=== PATIENT | male | born 1935 | race Caucasian/White ===

== ENCOUNTER 2017-08-20 09:13 | Observation (INO) ==
--- NOTE | 2017-08-20 09:32 | Emergency Department Note ---
Disposition Clinical Impression: Hyperglycemia Altered mental status Qualifiers: Altered mental status type: unspecified Qualified Code(s): R41.82 - Altered mental status, unspecified Disposition: Admitted As Inpatient Condition: Fair Referrals: Marcello Gomez MD [Primary Care Provider] - Forms: ED Satisfaction Letter Time of Disposition: 10:53 General Adult HPI - General Chief complaint: ED Recheck/Abnormal Lab/Rx Stated complaint: Elevated Blood Glucose Time Seen by Provider: 08/20/17 09:25 Source: patient, family Mode of arrival: ambulatory Limitations: no limitations Nursing Notes Reviewed: Yes Vital Signs Reviewed: Yes - History of Present Illness HPI Narrative: 82-year-old who comes in complaining of elevated glucose family states he's not able to get his glucose under 350-400. Turns out according to daughter that is been some confusion and in taking his medications he has not been taking his metformin. They went to see the family doctor and he started back on his metformin on Tuesday but apparently has not been taking his insulin. So no noticed over the last couple weeks increasing confusion and memory problems. Pt Subjective Complaint: Confusion diabetes out of control Onset (ago): day(s) Pain Scale: 0 - Related Data Home Medications Medication Instructions Recorded Confirmed Aspirin [Adult Low Dose Aspirin EC] 81 mg PO 01/06/16 Insulin Glargine,Hum.rec.anlog 100 unit SQ 01/06/16 [Lantus Solostar] Meclizine [Antivert] 01/06/16 Metoprolol [Lopressor] 100 mg PO 01/06/16 Multivitamin [Multivitamins] 01/06/16 Nitroquick 01/06/16 [employer]/Dha/Epa/Fish Oil [Fish Oil] 500 mg PO 01/06/16 Pravastatin Sodium [Pravachol] 80 mg PO 01/06/16 Promethazine [Phenergan] 25 mg PO 01/06/16 Quinapril HCl [Accupril] 40 mg PO 01/06/16 Ranitidine HCl [Zantac] 150 mg PO 01/06/16 Sitagliptin Phosphate [Januvia] 50 mg PO 01/06/16 amLODIPine [Norvasc] 5 mg PO 01/06/16 glipiZIDE [Glipizide] 10 mg PO 01/06/16 hydroCHLOROthiazide 25 mg PO 01/06/16 [Hydrochlorothiazide] metFORMIN [Glucophage] 01/06/16 Allergies Allergy/AdvReac Type Severity Reaction Status Date / Time glimepiride [From Amaryl] Allergy Rash Verified 08/20/17 09:20 ivp dye Allergy Rash Uncoded 08/20/17 09:20 All systems ED: reviewed and negative except as stated. Constitutional: Denies: fever, chills, weakness, weight change Eyes: Denies: eye pain, eye discharge, vision change ENT ED: Denies: ear pain, throat pain, dental pain, hearing loss, epistaxis, congestion, dysphagia Cardiovascular: Denies: chest pain, palpitations, dyspnea on exertion, edema, syncope Respiratory: Denies: cough, dyspnea, wheezes, hemoptysis, stridor Gastrointestinal: Denies: abdominal pain, nausea, vomiting, diarrhea, constipation, hematemesis, melena, hematochezia Genitourinary: Denies: urgency, dysuria, frequency, hematuria Musculoskeletal: Denies: back pain, neck pain, arthralgia, myalgia Integumentary: Denies: rash, abrasion, lesions Neurological: Reports: confusion. Denies: headache, weakness, numbness, paresthesias, abnormal gait, vertigo Psychiatric: Denies: anxiety, depression, suicidal thoughts, homicidal thoughts , auditory hallucinations, visual hallucinations Endocrine: Denies: fatigue Hematological/Lymphatic: Denies: easy bleeding, easy bruising Allergic/Immunologic: Denies: facial swelling, urticaria Past Medical History - Past Medical History Medical history: Reports: diabetes, hypertension, myocardial infarction Psychiatric history: Reports: no psych history - Social History Smoking Status: Never smoker Smokeless Tobacco Status: No Alcohol use: Reports: none Drug use: Reports: none Physical Exam - General Limitations: no limitations General appearance: alert, in no apparent distress - Head Head exam: atraumatic, normocephalic, normal inspection - Eye Eye exam: Present: normal appearance, PERRL, EOMI - ENT ENT exam: normal exam, normal oropharynx, mucous membranes moist - Neck Neck exam: Present: normal inspection, full ROM, trachea midline - Chest Chest inspection: Present: normal inspection, symmetric chest wall rise - Respiratory Respiratory exam: Present: normal lung sounds bilaterally - Cardiovascular Cardiovascular exam: Present: regular rate, normal rhythm, normal heart sounds - Abdominal Exam Abdominal exam: Present: soft, Non-Tender. Absent: tenderness, distention, guarding, rebound, rigidity - Extremities Exam Extremities exam: Present: normal inspection, full ROM. Absent: tenderness, pedal edema - Expanded Lower Extremity Exam Neurovascular/Tendon exam: Absent: motor deficit, sensory deficit, tendon deficit Gait: observed and normal - Back Exam Back exam: Present: normal inspection, full ROM. Absent: tenderness - Neurological Exam Neurological exam: Present: alert, oriented X3. Absent: motor sensory deficit - Psychiatric Psychiatric exam: Present: normal affect, normal mood - Skin Skin exam: Present: warm, dry, intact, normal color Course - Reevaluation(s) Reevaluation #1: 82-year-old who comes in complaining of altered mental status or confusion according to family and also elevated glucose. Ketones are positive in his blood. But the patient my impression is he has some dementia. Time: 11:35 - Consultations Consultation #1: Discussed with Dr. Carson, admit Time: 11:36 Vital Signs Temperature 97.4 F L 08/20/17 09:16 Pulse Rate 64 08/20/17 09:16 Respiratory Rate 16 08/20/17 09:16 Blood Pressure 211/73 08/20/17 09:16 O2 Sat by Pulse Oximetry 96 08/20/17 09:16 Temperature 97.4 F L 08/20/17 09:16 Pulse Rate 62 08/20/17 10:33 Respiratory Rate 16 08/20/17 10:33 Blood Pressure 211/73 08/20/17 09:16 O2 Sat by Pulse Oximetry 96 08/20/17 10:33 Oxygen Delivery Oxygen Delivery Room Air Medical Decision Making - Lab Data Lab results reviewed: Yes I reviewed the patient's lab results. Result diagrams: 08/20/17 10:42 08/20/17 09:54 Lab Results 08/20/17 08/20/17 08/20/17 Range/Units 09:43 09:45 09:54 WBC (4.3-11.1) K/mcL RBC (4.19-5.50) M/mcL Hgb (12.9-16.9) g/dL Hct (37.5-50.1) % MCV (83.0-100.0) fL MCH (28.0-33.3) pg MCHC (31.6-35.5) g/dL RDW (11.5-14.5) % Plt Count (140-400) K/mcL MPV (9.4-12.4) fL Immature Gran % (0-4) % Seg Neutrophils % % Lymphocytes % % Monocytes % % Eosinophils % % Basophils % % Neutrophils # (1.6-8.9) K/mcL Lymphocytes # (0.6-4.6) K/mcL Monocytes # (0.0-1.3) K/mcL Eosinophils # (0.0-0.6) K/mcL Basophils # (0.0-0.2) K/mcL Immature Plt Fraction (1.1-6.1) % PT 11.1 (9.4-12.1) Seconds INR 1.0 APTT 27.1 (26.0-36.0) Seconds Sodium (136-145) mEq/L Potassium (3.5-4.5) mEq/L Chloride (98-109) mEq/L Carbon Dioxide (19-29) mEq/L BUN (8-26) mg/dL Creatinine (0.72-1.25) mg/dL Est GFR ( Amer) (> 60) Est GFR (Non-Af Amer) (> 60) BUN/Creatinine Ratio (6-26) Glucose (70-99) mg/dL POC Glucose 308 H 301 H (58-89) Calculated Osmolality (280-300) Calcium (8.6-10.8) mg/dL Total Bilirubin (0.2-1.2) mg/dL Direct Bilirubin (0.0-0.5) mg/dL Indirect Bilirubin (0.0-1.2) mg/dL AST (5-34) Units/L ALT (0-55) Units/L Alkaline Phosphatase (38-126) Units/L Troponin I (0-0.03) ng/mL Serum Total Protein (6.0-8.3) g/dL Albumin (3.5-5.0) g/dL Globulin (2.4-3.5) g/dL Albumin/Globulin Ratio (1.1-2.2) Beta-Hydroxybutyric Acd (0.02-0.27) mmol/L Urine Color (Yellow) Urine Clarity (Clear) Urine pH (5.0-8.0) pH Units Ur Specific Silas (1.010-1.025) Urine Protein (Neg-Trace) mg/dL Urine Glucose (UA) (Normal) mg/dL Urine Ketones (Negative) mg/dL Urine Blood (Negative) Urine Nitrite (Negative) Urine Bilirubin (Negative) Urine Urobilinogen (Normal) mg/dL Ur Leukocyte Esterase (Negative) Urine Microscopic RBC (0-3) per hpf Urine Microscopic WBC (0-3) per hpf Ur Squamous Epith Cells (None-Few) per lpf Urine Bacteria (None-Few) per hpf Hyaline Casts (None-Few) per lpf Ur Culture Indicated? (NO) Urine Opiates Screen (Eazrte=012) ng/mL Ur Barbiturates Screen (Eadtpn=594) ng/mL Ur Phencyclidine Scrn (Cutoff=25) ng/mL Ur Amphetamines Screen (Mfoaqs=1079) ng/mL U Benzodiazepines Scrn (Jaqylo=324) ng/mL Urine Cocaine Screen (Cutoff= 300) ng/mL U Marijuana (THC) Screen (Cutoff = 50) ng/mL Ethyl Alcohol (0-10) mg/dL Specimen Rejected 08/20/17 08/20/17 08/20/17 Range/Units 09:54 09:54 09:54 WBC (4.3-11.1) K/mcL RBC (4.19-5.50) M/mcL Hgb (12.9-16.9) g/dL Hct (37.5-50.1) % MCV (83.0-100.0) fL MCH (28.0-33.3) pg MCHC (31.6-35.5) g/dL RDW (11.5-14.5) % Plt Count (140-400) K/mcL MPV (9.4-12.4) fL Immature Gran % (0-4) % Seg Neutrophils % % Lymphocytes % % Monocytes % % Eosinophils % % Basophils % % Neutrophils # (1.6-8.9) K/mcL Lymphocytes # (0.6-4.6) K/mcL Monocytes # (0.0-1.3) K/mcL Eosinophils # (0.0-0.6) K/mcL Basophils # (0.0-0.2) K/mcL Immature Plt Fraction (1.1-6.1) % PT (9.4-12.1) Seconds INR APTT (26.0-36.0) Seconds Sodium 137 (136-145) mEq/L Potassium 4.4 (3.5-4.5) mEq/L Chloride 100 (98-109) mEq/L Carbon Dioxide 30 H (19-29) mEq/L BUN 24 (8-26) mg/dL Creatinine 1.06 (0.72-1.25) mg/dL Est GFR ( Amer) > 60 (> 60) Est GFR (Non-Af Amer) > 60 (> 60) BUN/Creatinine Ratio 23 (6-26) Glucose 339 H (70-99) mg/dL POC Glucose (58-89) Calculated Osmolality 301 H (280-300) Calcium 9.4 (8.6-10.8) mg/dL Total Bilirubin 0.9 (0.2-1.2) mg/dL Direct Bilirubin 0.3 (0.0-0.5) mg/dL Indirect Bilirubin 0.6 (0.0-1.2) mg/dL AST 14 (5-34) Units/L ALT 11 (0-55) Units/L Alkaline Phosphatase 89 (38-126) Units/L Troponin I 0.01 (0-0.03) ng/mL Serum Total Protein 6.8 (6.0-8.3) g/dL Albumin 3.4 L (3.5-5.0) g/dL Globulin 3.4 (2.4-3.5) g/dL Albumin/Globulin Ratio 1.0 L (1.1-2.2) Beta-Hydroxybutyric Acd 0.92 H (0.02-0.27) mmol/L Urine Color (Yellow) Urine Clarity (Clear) Urine pH (5.0-8.0) pH Units Ur Specific Silas (1.010-1.025) Urine Protein (Neg-Trace) mg/dL Urine Glucose (UA) (Normal) mg/dL Urine Ketones (Negative) mg/dL Urine Blood (Negative) Urine Nitrite (Negative) Urine Bilirubin (Negative) Urine Urobilinogen (Normal) mg/dL Ur Leukocyte Esterase (Negative) Urine Microscopic RBC (0-3) per hpf Urine Microscopic WBC (0-3) per hpf Ur Squamous Epith Cells (None-Few) per lpf Urine Bacteria (None-Few) per hpf Hyaline Casts (None-Few) per lpf Ur Culture Indicated? (NO) Urine Opiates Screen (Awguju=466) ng/mL Ur Barbiturates Screen (Vsrrht=992) ng/mL Ur Phencyclidine Scrn (Cutoff=25) ng/mL Ur Amphetamines Screen (Nzssyr=5743) ng/mL U Benzodiazepines Scrn (Lgxexy=367) ng/mL Urine Cocaine Screen (Cutoff= 300) ng/mL U Marijuana (THC) Screen (Cutoff = 50) ng/mL Ethyl Alcohol < 10 (0-10) mg/dL Specimen Rejected 08/20/17 08/20/17 08/20/17 Range/Units 09:54 10:02 10:04 WBC (4.3-11.1) K/mcL RBC (4.19-5.50) M/mcL Hgb (12.9-16.9) g/dL Hct (37.5-50.1) % MCV (83.0-100.0) fL MCH (28.0-33.3) pg MCHC (31.6-35.5) g/dL RDW (11.5-14.5) % Plt Count (140-400) K/mcL MPV (9.4-12.4) fL Immature Gran % (0-4) % Seg Neutrophils % % Lymphocytes % % Monocytes % % Eosinophils % % Basophils % % Neutrophils # (1.6-8.9) K/mcL Lymphocytes # (0.6-4.6) K/mcL Monocytes # (0.0-1.3) K/mcL Eosinophils # (0.0-0.6) K/mcL Basophils # (0.0-0.2) K/mcL Immature Plt Fraction (1.1-6.1) % PT (9.4-12.1) Seconds INR APTT (26.0-36.0) Seconds Sodium (136-145) mEq/L Potassium (3.5-4.5) mEq/L Chloride (98-109) mEq/L Carbon Dioxide (19-29) mEq/L BUN (8-26) mg/dL Creatinine (0.72-1.25) mg/dL Est GFR ( Amer) (> 60) Est GFR (Non-Af Amer) (> 60) BUN/Creatinine Ratio (6-26) Glucose (70-99) mg/dL POC Glucose (58-89) Calculated Osmolality (280-300) Calcium (8.6-10.8) mg/dL Total Bilirubin (0.2-1.2) mg/dL Direct Bilirubin (0.0-0.5) mg/dL Indirect Bilirubin (0.0-1.2) mg/dL AST (5-34) Units/L ALT (0-55) Units/L Alkaline Phosphatase (38-126) Units/L Troponin I (0-0.03) ng/mL Serum Total Protein (6.0-8.3) g/dL Albumin (3.5-5.0) g/dL Globulin (2.4-3.5) g/dL Albumin/Globulin Ratio (1.1-2.2) Beta-Hydroxybutyric Acd (0.02-0.27) mmol/L Urine Color Yellow (Yellow) Urine Clarity Clear (Clear) Urine pH 6.0 (5.0-8.0) pH Units Ur Specific Silas > 1.030 H (1.010-1.025) Urine Protein 100 H (Neg-Trace) mg/dL Urine Glucose (UA) >=1000 H (Normal) mg/dL Urine Ketones 15 H (Negative) mg/dL Urine Blood Trace H (Negative) Urine Nitrite Negative (Negative) Urine Bilirubin Negative (Negative) Urine Urobilinogen Normal (Normal) mg/dL Ur Leukocyte Esterase Negative (Negative) Urine Microscopic RBC 0-3 (0-3) per hpf Urine Microscopic WBC 0-3 (0-3) per hpf Ur Squamous Epith Cells Moderate H (None-Few) per lpf Urine Bacteria None Seen (None-Few) per hpf Hyaline Casts None Seen (None-Few) per lpf Ur Culture Indicated? NO (NO) Urine Opiates Screen Negative (Mkuntr=685) ng/mL Ur Barbiturates Screen Negative (Lvsodh=984) ng/mL Ur Phencyclidine Scrn Negative (Cutoff=25) ng/mL Ur Amphetamines Screen Negative (Shssfs=2381) ng/mL U Benzodiazepines Scrn Negative (Lwapfz=691) ng/mL Urine Cocaine Screen Negative (Cutoff= 300) ng/mL U Marijuana (THC) Screen Negative (Cutoff = 50) ng/mL Ethyl Alcohol (0-10) mg/dL Specimen Rejected Clotted 08/20/17 Range/Units 10:42 WBC 6.1 (4.3-11.1) K/mcL RBC 4.83 (4.19-5.50) M/mcL Hgb 15.0 (12.9-16.9) g/dL Hct 43.4 (37.5-50.1) % MCV 89.9 (83.0-100.0) fL MCH 31.1 (28.0-33.3) pg MCHC 34.6 (31.6-35.5) g/dL RDW 12.4 (11.5-14.5) % Plt Count 205 (140-400) K/mcL MPV 13.5 H (9.4-12.4) fL Immature Gran % 0.3 (0-4) % Seg Neutrophils % 72.9 % Lymphocytes % 17.6 % Monocytes % 8.2 % Eosinophils % 0.5 % Basophils % 0.5 % Neutrophils # 4.5 (1.6-8.9) K/mcL Lymphocytes # 1.1 (0.6-4.6) K/mcL Monocytes # 0.5 (0.0-1.3) K/mcL Eosinophils # 0.0 (0.0-0.6) K/mcL Basophils # 0.0 (0.0-0.2) K/mcL Immature Plt Fraction 2.2 (1.1-6.1) % PT (9.4-12.1) Seconds INR APTT (26.0-36.0) Seconds Sodium (136-145) mEq/L Potassium (3.5-4.5) mEq/L Chloride (98-109) mEq/L Carbon Dioxide (19-29) mEq/L BUN (8-26) mg/dL Creatinine (0.72-1.25) mg/dL Est GFR ( Amer) (> 60) Est GFR (Non-Af Amer) (> 60) BUN/Creatinine Ratio (6-26) Glucose (70-99) mg/dL POC Glucose (58-89) Calculated Osmolality (280-300) Calcium (8.6-10.8) mg/dL Total Bilirubin (0.2-1.2) mg/dL Direct Bilirubin (0.0-0.5) mg/dL Indirect Bilirubin (0.0-1.2) mg/dL AST (5-34) Units/L ALT (0-55) Units/L Alkaline Phosphatase (38-126) Units/L Troponin I (0-0.03) ng/mL Serum Total Protein (6.0-8.3) g/dL Albumin (3.5-5.0) g/dL Globulin (2.4-3.5) g/dL Albumin/Globulin Ratio (1.1-2.2) Beta-Hydroxybutyric Acd (0.02-0.27) mmol/L Urine Color (Yellow) Urine Clarity (Clear) Urine pH (5.0-8.0) pH Units Ur Specific Silas (1.010-1.025) Urine Protein (Neg-Trace) mg/dL Urine Glucose (UA) (Normal) mg/dL Urine Ketones (Negative) mg/dL Urine Blood (Negative) Urine Nitrite (Negative) Urine Bilirubin (Negative) Urine Urobilinogen (Normal) mg/dL Ur Leukocyte Esterase (Negative) Urine Microscopic RBC (0-3) per hpf Urine Microscopic WBC (0-3) per hpf Ur Squamous Epith Cells (None-Few) per lpf Urine Bacteria (None-Few) per hpf Hyaline Casts (None-Few) per lpf Ur Culture Indicated? (NO) Urine Opiates Screen (Lbgkhj=645) ng/mL Ur Barbiturates Screen (Agolxa=777) ng/mL Ur Phencyclidine Scrn (Cutoff=25) ng/mL Ur Amphetamines Screen (Ujyjki=0885) ng/mL U Benzodiazepines Scrn (Jypzja=768) ng/mL Urine Cocaine Screen (Cutoff= 300) ng/mL U Marijuana (THC) Screen (Cutoff = 50) ng/mL Ethyl Alcohol (0-10) mg/dL Specimen Rejected - Radiology Data Radiology results reviewed: Yes I reviewed the patient's radiology results. Chest X-Ray 08/20/17 09:28 IMPRESSION: No active cardiopulmonary disease D/ / Gregory Mckinney MD / Gregory Mckinney MD Interpreting Provider: Gregory Mckinney MD Head CT 08/20/17 09:29 IMPRESSION: No acute intracranial abnormality. Moderate periventricular white matter changes consistent with chronic microvascular ischemia D/ / Roberto Carlos Vasquez MD / Roberto Carlos Vasquez MD Interpreting Provider: Roberto Carlos Vasquez MD - EKG Data EKG #1 EKG attestation: Yes I reviewed and interpreted this EKG. EKG shows normal: sinus rhythm Rate: normal Rhythm: NSR
[2017-08-20 10:06] LABS: Prothrombin Time 11.1 Seconds (9.4-12.1)
[2017-08-20 10:09] LABS: Activated Partial Thrombo Time 27.1 Seconds (26.0-36.0)
[2017-08-20 10:10] LABS: Bilirubin,Urine Negative (Negative); Blood,Urine Trace (Negative); Clarity,Urine Clear (Clear); Color,Urine Yellow (Yellow); Glucose,Urine (UA) >=1000 mg/dL (Normal); Ketones,Urine 15 mg/dL (Negative); Leukocyte Esterase,Urine Negative (Negative); Nitrite,Urine Negative (Negative); Protein,Urine 100 mg/dL (Neg-Trace); Specific Gravity,Urine > 1.030 (1.010-1.025); Urobilinogen,Urine Normal (Normal)
[2017-08-20 10:13] LABS: Bacteria,Urine None Seen per hpf (None-Few); Hyaline Casts,Urine None Seen per lpf (None-Few); RBC,Urine 0-3 per hpf (0-3); Squamous Epithelial Cell,Urine Moderate per lpf (None-Few); WBC,Urine 0-3 per hpf (0-3)
[2017-08-20 10:17] LABS: Amphetamine Screen,Urine Negative ng/mL (Cutoff=1000); Barbiturate Screen,Urine Negative ng/mL (Cutoff=200); Benzodiazepines Screen,Urine Negative ng/mL (Cutoff=200); Cannabinoid Screen,Urine Negative ng/mL (Cutoff = 50); Cocaine Screen,Urine Negative ng/mL (Cutoff= 300); Opiate Screen,Urine Negative ng/mL (Cutoff=300); Phencyclidine Screen,Urine Negative ng/mL (Cutoff=25)
[2017-08-20 10:18] LABS: Alanine Aminotransferase 11 Units/L (0-55); Albumin 3.4 g/dL (3.5-5.0); Alkaline Phosphatase 89 Units/L (38-126); Aspartate Amino Transferase 14 Units/L (5-34); BUN/Creatinine Ratio 23 (6-26); Bilirubin,Direct 0.3 mg/dL (0.0-0.5); Bilirubin,Indirect 0.6 mg/dL (0.0-1.2); Bilirubin,Total 0.9 mg/dL (0.2-1.2); Blood Urea Nitrogen 24 mg/dL (8-26); Calcium 9.4 mg/dL (8.6-10.8); Carbon Dioxide 30 mEq/L (19-29); Chloride 100 mEq/L (98-109); Ethanol < 10 mg/dL (0-10); Globulin 3.4 g/dL (2.4-3.5); Glucose 339 mg/dL (70-99); Osmolality,Calculated 301 (280-300); Potassium 4.4 mEq/L (3.5-4.5); Sodium 137 mEq/L (136-145); Total Protein 6.8 g/dL (6.0-8.3); eGFR For African Americans > 60 (> 60); eGFR For Non-African Americans > 60 (> 60)
[2017-08-20 10:47] LABS: Basophils % 0.5 %; Red Cell Distribution Width 12.4 % (11.5-14.5)
[2017-08-20 10:49] LABS: Eosinophils % 0.5 %; Hematocrit 43.4 % (37.5-50.1); Immature Granulocytes % 0.3 % (0-4); Immature Platelets 2.2 % (1.1-6.1); Lymphocytes # 1.1 K/mcL (0.6-4.6); Lymphocytes % 17.6 %; Mean Corpuscular HGB Conc 34.6 g/dL (31.6-35.5); Mean Corpuscular Hemoglobin 31.1 pg (28.0-33.3); Mean Corpuscular Volume 89.9 fL (83.0-100.0); Mean Platelet Volume 13.5 fL (9.4-12.4); Monocytes # 0.5 K/mcL (0.0-1.3); Monocytes % 8.2 %; Platelet Count 205 K/mcL (140-400); Red Blood Count 4.83 M/mcL (4.19-5.50); Segmented Neutrophils % 72.9 %
[2017-08-20] MEDS ORDERED: Insulin Regular, Human 100 UNIT/ML IV ONE (10:54)
[2017-08-20 11:19] LABS: Neutrophils # 4.5 K/mcL (1.6-8.9)
[2017-08-20] MEDS ORDERED: 0.9 % Sodium Chloride 500 ML IVC ONE (12:53)
[2017-08-20] MEDS ORDERED: 0.9 % Sodium Chloride 1,000 ML IVC ONE (12:53)
--- NOTE | 2017-08-20 13:09 | Internal Med History&Physical ---
Date of Encounter: 08/20/17 Time of Encounter: 13:08 Assessment and Plan (1) Metabolic encephalopathy Current visit: Yes Status: Acute (2) HHNC (hyperglycemic hyperosmolar nonketotic coma) Current visit: Yes Status: Acute Patient has minimal ketones in blood. The anion gap is 7. He is not indicated... Sliding scale insulin every 4 hours, In addition to 10 units of lantus which is his home dose. Etiology for presentation is noncompliance. Will restart insulin Internal Medicine - H&P: HPI Chief complaint: weakness, confusion History of present illness: Mr. 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 HTN and diabetes mellitus type II presents to the emergency room today with the main complain of weakness and confusion. Patient was sent to the emergency room today by his family members because of high blood sugar. Patient checks the sugar the alien has been noticing that over the past 2 weeks sugars have been running high. Patient mentioned that he stopped taking his insulin for the past 2 weeks started taking metformin. Patient notices that he is getting progressively weakened lethargic. He had lost 10 pounds over the past month. Family also mentioned that patient is intermittently confused he denies any focal weakness. He denies any recent febrile illness. No coughing expectoration fever chills urinary symptoms of diarrhea. He was alert and oriented times 3 during my interview. Past Med Surg Social Fam HX - Past Medical History Medical history: diabetes, hypertension, myocardial infarction Psychiatric history: no psych history - Social History Smoking Status: Never smoker Smokeless Tobacco Status: No Alcohol use: none Drug use: none Internal Medicine - H&P: Meds Aspirin [Adult Low Dose Aspirin EC] 81 mg PO 01/06/16 [History] Insulin Glargine,Hum.rec.anlog [Lantus Solostar] 100 unit SQ 01/06/16 [History] Meclizine [Antivert] 01/06/16 [History] Metoprolol [Lopressor] 100 mg PO 01/06/16 [History] Multivitamin [Multivitamins] 01/06/16 [History] Nitroquick 01/06/16 [History] [place]-3/Dha/Epa/Fish Oil [Fish Oil] 500 mg PO 01/06/16 [History] Pravastatin Sodium [Pravachol] 80 mg PO 01/06/16 [History] Promethazine [Phenergan] 25 mg PO 01/06/16 [History] Quinapril HCl [Accupril] 40 mg PO 01/06/16 [History] Ranitidine HCl [Zantac] 150 mg PO 01/06/16 [History] Sitagliptin Phosphate [Januvia] 50 mg PO 01/06/16 [History] amLODIPine [Norvasc] 5 mg PO 01/06/16 [History] glipiZIDE [Glipizide] 10 mg PO 01/06/16 [History] hydroCHLOROthiazide [Hydrochlorothiazide] 25 mg PO 01/06/16 [History] metFORMIN [Glucophage] 01/06/16 [History] 3 Allergy/AdvReac Type Severity Reaction Status Date / Time glimepiride [From Amaryl] Allergy Rash Verified 08/20/17 09:20 ivp dye Allergy Rash Uncoded 08/20/17 09:20 All Systems PM: A 10-system review of systems was performed and is negative for pertinent findings except as documented above in the HPI. Review of systems: 10 point review of systems is negative except for HPI - Constitutional Vitals: Temp Pulse Resp BP Pulse Ox 97.4 F L 62 18 145/56 96 08/20/17 09:16 08/20/17 11:36 08/20/17 12:50 08/20/17 12:50 08/20/17 11:36 Internal Med - H&P Results - Labs CBC & Chem 7: 08/20/17 10:42 08/20/17 09:54
[2017-08-20] MEDS: 0.9 % Sodium Chloride 1,000 ML IVC SCH (17:09)
[2017-08-20] MEDS: Insulin LISPRO 300 UNITS/3 ML VIAL SQ SCH ×2 (17:12→21:46)
[2017-08-20] MEDS: *HR* Heparin 5,000 UNIT/ML VIAL SQ SCH (17:12)
[2017-08-20] MEDS ORDERED: *HR* LORazepam 2 MG/ML VIAL IVP PRN (21:14)
[2017-08-21] MEDS: Insulin LISPRO 300 UNITS/3 ML VIAL SQ SCH ×3 (00:14→07:56)
[2017-08-21] MEDS: 0.9 % Sodium Chloride 1,000 ML IVC SCH (02:10)
[2017-08-21] MEDS: *HR* Heparin 5,000 UNIT/ML VIAL SQ SCH (06:12)
[2017-08-21 06:48] LABS: Basophils % 0.7 %; Eosinophils # 0.1 K/mcL (0.0-0.6); Eosinophils % 0.9 %; Hematocrit 38.7 % (37.5-50.1); Hemoglobin 13.5 g/dL (12.9-16.9); Immature Granulocytes % 0.5 % (0-4); Lymphocytes # 1.2 K/mcL (0.6-4.6); Lymphocytes % 21.7 %; Mean Corpuscular HGB Conc 34.9 g/dL (31.6-35.5); Mean Corpuscular Volume 88.8 fL (83.0-100.0); Mean Platelet Volume 11.2 fL (9.4-12.4); Monocytes # 0.6 K/mcL (0.0-1.3); Monocytes % 10.9 %; Neutrophils # 3.6 K/mcL (1.6-8.9); Platelet Count 145 K/mcL (140-400); Red Blood Count 4.36 M/mcL (4.19-5.50); Red Cell Distribution Width 12.2 % (11.5-14.5); Segmented Neutrophils % 65.3 %
[2017-08-21 07:04] LABS: BUN/Creatinine Ratio 17 (6-26); Calcium 8.1 mg/dL (8.6-10.8); Carbon Dioxide 23 mEq/L (19-29); Chloride 103 mEq/L (98-109); Glucose 136 mg/dL (70-99); Hemoglobin A1C 8.8 %; Magnesium 1.4 mg/dL (1.6-2.6); Osmolality,Calculated 290 (280-300); Sodium 139 mEq/L (136-145); eGFR For African Americans > 60 (> 60); eGFR For Non-African Americans > 60 (> 60)
[2017-08-21 08:05] LABS: Blood Urea Nitrogen 12 mg/dL (8-26); Potassium 3.3 mEq/L (3.5-4.5)
[2017-08-21] MEDS ORDERED: Famotidine 20 MG/2 ML VIAL IVP SCH (09:00)
--- NOTE | 2017-08-21 10:57 | Discharge Summary ---
Date of Encounter: 08/21/17 Time of Encounter: 10:55 - Discharge Diagnosis (1) Altered mental status Priority: Primary Status: Resolved Qualifiers: Altered mental status type: delirium Qualified Code(s): R41.0 - Disorientation, unspecified (2) HHNC (hyperglycemic hyperosmolar nonketotic coma) Priority: Primary Status: Resolved (3) Metabolic encephalopathy Priority: Primary Status: Resolved (4) Hypertension, essential Priority: Secondary Status: Acute (5) DM2 (diabetes mellitus, type 2) Priority: Secondary Status: Acute Qualifiers: Qualified Code(s): E11.9 - Type 2 diabetes mellitus without complications - Discharge Medications Home Medications: Aspirin [Adult Low Dose Aspirin EC] 81 mg PO QPM 01/06/16 [History] Metoprolol [Lopressor] 100 mg PO BID 01/06/16 [History] Multivitamin [Multivitamins] 1 cap PO DAILY 01/06/16 [History] [place]-3/Dha/Epa/Fish Oil [Fish Oil Dr 500 mg Softgel] 500 mg PO DAILY 01/06/16 [ History] Pravastatin Sodium [Pravachol] 80 mg PO DAILY 01/06/16 [History] Quinapril HCl [Accupril] 40 mg PO DAILY 01/06/16 [History] Ranitidine HCl [Zantac] 150 mg PO DAILY 01/06/16 [History] glipiZIDE [Glipizide] 10 mg PO BID 01/06/16 [History] hydroCHLOROthiazide [Hydrochlorothiazide] 25 mg PO DAILY 01/06/16 [History] metFORMIN [Glucophage] 1,000 mg PO BID 01/06/16 [History] Insulin Glargine,Hum.rec.anlog [Lantus Solostar] 12 unit SQ DAILY #0 08/21/17 [ Rx] Allergies/Adverse Reactions: 3 Allergy/AdvReac Type Severity Reaction Status Date / Time glimepiride [From Amaryl] Allergy Rash Verified 08/20/17 09:20 ivp dye Allergy Rash Uncoded 08/20/17 09:20 Date of admission: 08/20/17 11:49 Primary care physician: Marcello Gomez MD Consults: 08/20/17 12:55 Consult to Occupational Therapy [CONS] Routine Comment: Evaluate, develop and implement POC Reason for Consult: weakness Consult to Physical Therapy [CONS] Routine Comment: Evaluate, develop and implement POC Reason for Consult: weakness - Patient Status Disposition: Home, Self-Care Condition: Good Overall status at discharge: patient is back to baseline - Discharge Instructions Follow Up With: Marcello Gomez MD [Primary Care Provider] - - Diet and Activity Activity: increase activity as tolerated Hospital course: Mr. 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 HTN and diabetes mellitus type II presents to the emergency room with the main complain of weakness and confusion. Patient was sent to the emergency room today by his family members because of high blood sugar. Patient checks the sugar the alien has been noticing that over the past 2 weeks sugars have been running high. Patient mentioned that he stopped taking his insulin for the past 2 weeks started taking metformin. Patient notices that he is getting progressively weakened lethargic. Pt was admitted with severe hyperglycemia, which seems to be improved with ISS and IV hydration. Now pt is more alert, awake and O x 3. He wanted to go home today. I did recommend the pt continue taking Lantus at 12 U and keep checking BS regularly since his HbA1C is 8.8. Will d/c pt home today in stable condition. - Time Spent with Patient Total time spent providing and/or coordinating discharge services: - Constitutional Vitals: Temp Pulse Resp BP Pulse Ox 98.1 F 81 18 145/73 97 08/21/17 06:46 08/21/17 06:46 08/21/17 06:46 08/21/17 06:46 08/21/17 06:46 General appearance: Present: A&O X 3, no acute distress, answers questions appropriately - Head Head exam: Present: atraumatic, normal inspection - Neck Neck exam general surgery: Present: supple - Respiratory Respiratory exam: Present: decreased breath sounds. Absent: rales, respiratory distress, rhonchi, wheezes - Cardiovascular Cardiovascular exam: Present: RRR, +S1, +S2. Absent: systolic murmur - GI/Abdominal GI/Abdominal exam: Present: normal bowel sounds, soft. Absent: rebound, rigid, tenderness - Extremities Exam Extremities exam: Absent: calf tenderness, pedal edema, tenderness - Back Exam Back exam: Absent: CVA tenderness (L), CVA tenderness (R) - Neurological Exam Neurological exam: Present: alert, oriented X3 - Psychiatric Psychiatric exam: Present: normal affect, normal mood
[2017-08-21] MEDS ORDERED: hydroCHLOROthiazide 25 MG TABLET PO SCH (11:00)
[2017-08-21] MEDS ORDERED: Metoprolol 100 MG TABLET PO SCH (11:00)
[2017-08-21] MEDS ORDERED: Lisinopril 20 MG TABLET PO SCH (11:00)
[2017-08-21 11:09] VITALS: BP 158/83
[2017-08-21] MEDS ORDERED: *HR* Metformin 500 MG TABLET PO SCH (17:00)
[2017-08-21] MEDS ORDERED: *HR* GlipiZIDE 5 MG TABLET PO SCH (17:00)
[2017-08-21] MEDS ORDERED: Aspirin Enteric Coated 81 MG Tablet PO SCH (18:00)
[2017-08-22] MEDS ORDERED: Multivit/Ca/Min/Fe/FA 1 TAB TABLET PO SCH (09:00)
[2017-08-22] MEDS ORDERED: FISH OIL PO SCH (09:00)
[2017-08-22] MEDS ORDERED: Famotidine 20 MG TABLET PO SCH (09:00)
[2017-08-22] MEDS ORDERED: Insulin DETEMIR 100 UNIT/ML X5UNITS SQ SCH (09:00)
[2017-08-22] MEDS ORDERED: EPA PO SCH (09:00)
[2017-08-22] MEDS ORDERED: DHA PO SCH (09:00)
[2017-08-22] MEDS ORDERED: OMEGA PO SCH (09:00)
--- NOTE | 2017-08-22 09:31 | Electrocardiograph Report ---
[place] [id number] Test Date: 2017-08-20 Pat Name: Collin Coates Department: 102 Room: 3B Gender: M [employer] Cardroom: Gurpreet : 1935 Requested By: Rudy Baker Order Number: [id number] Reading MD: Wilder Osei DO Measurements Intervals Reserve Rate: 63 P: 48 HI: 168 QRS: -45 QRSD: 102 T: 69 QT: 401 QTc: 409 Interpretive Statements SINUS RHYTHM LEFT ATRIAL ENLARGEMENT POSSIBLE LEFT ANTERIOR FASCICULAR BLOCK NONSPECIFIC T-WAVE ABNORMALITY Electronically Signed On 08-22-2017 9:30:01 EST by Wilder Osei DO
== END 2017-08-21 13:01 | disposition home or self-care (01) ==
LOC: EMEROO 09:13 → 3ANU 09:13 → SUATTDRO 11:49 → 3BNU 13:20
PROVIDERS: ADMIT Hospitalist; ATTEND Family Medicine

== ENCOUNTER 2020-05-27 06:03 | Inpatient (IN) ==
[2020-05-27 06:59] LABS: Bacteria,Urine Few per hpf (None-Few); Bilirubin,Urine Negative (Negative); Blood,Urine Trace (Negative); Clarity,Urine Clear (Clear); Color,Urine Yellow (Yellow); Glucose,Urine (UA) Normal (Normal); Ketones,Urine 10 mg/dL (Negative); Leukocyte Esterase,Urine Negative (Negative); Mucus,Urine Few per lpf (None-Few); Nitrite,Urine Negative (Negative); PH,Urine 5.5 pH Units (5.0-8.0); Protein,Urine 50 mg/dL (Neg-Trace); RBC,Urine 0-3 per hpf (0-3); Specific Gravity,Urine 1.024 (1.010-1.025); Urobilinogen,Urine Normal (Normal); WBC,Urine 0-3 per hpf (0-3)
[2020-05-27 07:28] LABS: Basophils # 0.1 K/mcL (0.0-0.2); Basophils % 0.5 %; Eosinophils # 0.1 K/mcL (0.0-0.6); Eosinophils % 0.8 %; Hemoglobin 15.6 g/dL (12.9-16.9); Immature Granulocytes % 1.8 % (0-4); Lymphocytes # 1.3 K/mcL (0.6-4.6); Lymphocytes % 8.8 %; Mean Corpuscular HGB Conc 31.8 g/dL (31.6-35.5); Mean Corpuscular Hemoglobin 31.8 pg (28.0-33.3); Mean Platelet Volume 11.3 fL (9.4-12.4); Monocytes # 1.1 K/mcL (0.0-1.3); Monocytes % 7.5 %; Neutrophils # 11.9 K/mcL (1.6-8.9); Platelet Count 139 K/mcL (140-400); Red Cell Distribution Width 13.5 % (11.5-14.5); Segmented Neutrophils % 80.6 %; White Blood Count 14.7 K/mcL (4.3-11.1)
[2020-05-27 07:56] LABS: Alanine Aminotransferase 31 Units/L (7-52); Albumin 3.3 g/dL (3.5-5.7); Alkaline Phosphatase 93 Units/L (34-104); Aspartate Amino Transferase 23 Units/L (13-39); BUN/Creatinine Ratio 54 (6-26); Bilirubin,Direct 0.2 mg/dL (0.0-0.2); Bilirubin,Indirect 0.4 mg/dL (0.0-1.0); Bilirubin,Total 0.6 mg/dL (0.3-1.0); Blood Urea Nitrogen 32 mg/dL (8-23); Calcium 9.5 mg/dL (8.6-10.3); Carbon Dioxide 31 mEq/L (23-29); Chloride 115 mEq/L (98-107); Globulin 3.4 g/dL (2.4-3.5); Glucose 158 mg/dL (70-105); Osmolality,Calculated 328 (280-300); Potassium 3.8 mEq/L (3.5-5.1); Sodium 154 mEq/L (136-145); Total Protein 6.7 g/dL (6.4-8.9); Troponin I 0.05 ng/mL (< 0.04); eGFR For African Americans > 60 (> 60); eGFR For Non-African Americans > 60 (> 60)
[2020-05-27 08:12] LABS: Prothrombin Time 11.6 Seconds (9.4-12.1)
[2020-05-27] MEDS ORDERED: Acetaminophen 650 MG RECTAL SUPP RC ONE ×3 (08:12→13:21)
[2020-05-27 08:14] LABS: Activated Partial Thrombo Time 29.7 Seconds (26.0-36.0)
[2020-05-27] MEDS ORDERED: D5% in Water 1,000 ML IVC SCH (09:00)
[2020-05-27 09:08] LABS: Adenovirus Not Detected (Not Detect); Bordetella Pertussis Not Detected (Not Detect); Chlamydophila pneumoniae Not Detected (Not Detect); Coronavirus 229E Not Detected (Not Detect); Coronavirus HKU1 Not Detected (Not Detect); Coronavirus NL63 Not Detected (Not Detect); Coronavirus OC43 Not Detected (Not Detect); Human Metapneumovirus Not Detected (Not Detect); Human Rhinovirus/Enterovirus Not Detected (Not Detect); Influenza A Subtype 2009 H1 Not Detected (Not Detect); Influenza B Not Detected (Not Detect); Mycoplasma pneumoniae Not Detected (Not Detect); Parainfluenza Virus 1 Not Detected (Not Detect); Parainfluenza Virus 2 Not Detected (Not Detect); Parainfluenza Virus 3 Not Detected (Not Detect); Parainfluenza Virus 4 Not Detected (Not Detect); Respiratory Syncytial Virus Not Detected (Not Detect)
[2020-05-27] MEDS ORDERED: Ampicillin/Sulbactam 3,000 MG in 0.9 % Sodium Chloride Mini Bag 100 ML IVPB ONE (10:23)
[2020-05-27] MEDS ORDERED: Naloxone 0.4 MG/ML INJ IVP PRN (11:06)
[2020-05-27] MEDS ORDERED: Ondansetron 4 MG/2 ML VIAL IVP PRN (11:06)
[2020-05-27] MEDS: D5% in 0.9% NACL 1,000 ML IVC SCH (11:36)
[2020-05-27] MEDS: Azithromycin 500 MG in 0.9 % Sodium Chloride 250 ML IVPB SCH (12:40)
[2020-05-27] MEDS ORDERED: Dextrose Gel 15 GM/37.5 ML TUBE PO PRN ×2 (16:45)
[2020-05-27] MEDS ORDERED: *HR* Dextrose 50 % in Water (Vial) 50 ML VIAL IVP PRN (16:45)
[2020-05-27] MEDS ORDERED: D5% in Water 1,000 ML IVC PRN (16:45)
[2020-05-27] MEDS ORDERED: Acetaminophen 325 MG TABLET PO PRN (16:52)
[2020-05-27] MEDS ORDERED: Insulin LISPRO 300 UNITS/3 ML VIAL SQ SCH (17:00)
[2020-05-27] MEDS: *HR* Heparin 5,000 UNIT/ML VIAL SQ SCH (17:04)
[2020-05-27] MEDS: Ampicillin/Sulbactam 3,000 MG in 0.9 % Sodium Chloride Mini Bag 100 ML IVPB SCH (17:05)
[2020-05-27 17:13] LABS: BUN/Creatinine Ratio 56 (6-26); Blood Urea Nitrogen 31 mg/dL (8-23); Calcium 8.8 mg/dL (8.6-10.3); Carbon Dioxide 29 mEq/L (23-29); Chloride 116 mEq/L (98-107); Glucose 364 mg/dL (70-105); Osmolality,Calculated 337 (280-300); Potassium 3.7 mEq/L (3.5-5.1); Sodium 153 mEq/L (136-145); eGFR For African Americans > 60 (> 60); eGFR For Non-African Americans > 60 (> 60)
[2020-05-27 21:59] LABS: BUN/Creatinine Ratio 53 (6-26); Blood Urea Nitrogen 31 mg/dL (8-23); Calcium 8.8 mg/dL (8.6-10.3); Carbon Dioxide 27 mEq/L (23-29); Chloride 119 mEq/L (98-107); Glucose 290 mg/dL (70-105); Osmolality,Calculated 335 (280-300); Potassium 3.4 mEq/L (3.5-5.1); Sodium 154 mEq/L (136-145); eGFR For African Americans > 60 (> 60); eGFR For Non-African Americans > 60 (> 60)
[2020-05-28] MEDS: Ampicillin/Sulbactam 3,000 MG in 0.9 % Sodium Chloride Mini Bag 100 ML IVPB SCH ×3 (00:28→12:21)
[2020-05-28] MEDS: D5% in 0.9% NACL 1,000 ML IVC SCH ×2 (00:28→08:45)
[2020-05-28] MEDS ORDERED: Acetaminophen IV 500 MG/50 ML INFUS..BTL IVPB ONE (04:45)
[2020-05-28] MEDS: *HR* Heparin 5,000 UNIT/ML VIAL SQ SCH ×2 (05:18→17:29)
[2020-05-28 05:28] LABS: Basophils % 0.3 %; Eosinophils # 0.3 K/mcL (0.0-0.6); Eosinophils % 2.6 %; Hematocrit 46.9 % (37.5-50.1); Hemoglobin 14.4 g/dL (12.9-16.9); Lymphocytes # 1.4 K/mcL (0.6-4.6); Mean Corpuscular HGB Conc 30.7 g/dL (31.6-35.5); Mean Corpuscular Hemoglobin 30.9 pg (28.0-33.3); Mean Corpuscular Volume 100.6 fL (83.0-100.0); Monocytes # 0.9 K/mcL (0.0-1.3); Monocytes % 8.8 %; Neutrophils # 7.1 K/mcL (1.6-8.9); Nucleated Red Blood Cells 0.3 /100 WBC (0); Platelet Count 164 K/mcL (140-400); Red Blood Count 4.66 M/mcL (4.19-5.50); Red Cell Distribution Width 13.7 % (11.5-14.5); Segmented Neutrophils % 71.3 %
[2020-05-28 05:45] LABS: BUN/Creatinine Ratio 52 (6-26); Blood Urea Nitrogen 30 mg/dL (8-23); Calcium 8.7 mg/dL (8.6-10.3); Carbon Dioxide 28 mEq/L (23-29); Chloride 120 mEq/L (98-107); Glucose 307 mg/dL (70-105); Osmolality,Calculated 340 (280-300); Potassium 3.6 mEq/L (3.5-5.1); Sodium 156 mEq/L (136-145); eGFR For African Americans > 60 (> 60); eGFR For Non-African Americans > 60 (> 60)
[2020-05-28 05:53] LABS: Platelet Estimate Normal (Normal)
[2020-05-28] MEDS ORDERED: D5% in Water 1,000 ML IVC SCH ×2 (08:00→17:27)
[2020-05-28] MEDS: Insulin LISPRO 300 UNITS/3 ML VIAL SQ SCH ×3 (10:08→17:29)
[2020-05-28 10:36] LABS: BUN/Creatinine Ratio 52 (6-26); Blood Urea Nitrogen 29 mg/dL (8-23); Calcium 8.7 mg/dL (8.6-10.3); Carbon Dioxide 28 mEq/L (23-29); Chloride 122 mEq/L (98-107); Glucose 352 mg/dL (70-105); Osmolality,Calculated 342 (280-300); Potassium 3.5 mEq/L (3.5-5.1); Sodium 156 mEq/L (136-145); eGFR For African Americans > 60 (> 60); eGFR For Non-African Americans > 60 (> 60)
[2020-05-28] MEDS: Azithromycin 500 MG in 0.9 % Sodium Chloride 250 ML IVPB SCH (12:54)
[2020-05-28] MEDS ORDERED: *HR* HYDROmorphone (PF) 1 MG/ML SYRINGE IVP ONE (13:01)
[2020-05-28 14:03] LABS: BUN/Creatinine Ratio 50 (6-26); Blood Urea Nitrogen 27 mg/dL (8-23); Calcium 8.5 mg/dL (8.6-10.3); Carbon Dioxide 32 mEq/L (23-29); Chloride 123 mEq/L (98-107); Glucose 245 mg/dL (70-105); Osmolality,Calculated 337 (280-300); Potassium 3.2 mEq/L (3.5-5.1); Sodium 157 mEq/L (136-145); eGFR For African Americans > 60 (> 60); eGFR For Non-African Americans > 60 (> 60)
[2020-05-28 17:26] LABS: BUN/Creatinine Ratio 52 (6-26); Blood Urea Nitrogen 26 mg/dL (8-23); Calcium 8.8 mg/dL (8.6-10.3); Carbon Dioxide 31 mEq/L (23-29); Chloride 123 mEq/L (98-107); Glucose 173 mg/dL (70-105); Osmolality,Calculated 335 (280-300); Potassium 3.3 mEq/L (3.5-5.1); Sodium 158 mEq/L (136-145); eGFR For African Americans > 60 (> 60); eGFR For Non-African Americans > 60 (> 60)
[2020-05-28] MEDS ORDERED: Furosemide 40 MG/4 ML VIAL IVP ONE (17:32)
[2020-05-28] MEDS: *HR* Metoprolol 5 MG/5 ML VIAL IVP SCH (18:04)
[2020-05-28] MEDS: Vancomycin 1,000 MG in D5% in Water 250 ML IVPB SCH (18:08)
[2020-05-28 20:37] LABS: BUN/Creatinine Ratio 38 (6-26); Blood Urea Nitrogen 24 mg/dL (8-23); Calcium 8.3 mg/dL (8.6-10.3); Carbon Dioxide 32 mEq/L (23-29); Chloride 118 mEq/L (98-107); Glucose 215 mg/dL (70-105); Osmolality,Calculated 333 (280-300); Potassium 3.2 mEq/L (3.5-5.1); Sodium 156 mEq/L (136-145); eGFR For African Americans > 60 (> 60); eGFR For Non-African Americans > 60 (> 60)
[2020-05-28] MEDS ORDERED: Potassium Chloride 40 MEQ, Lidocaine 1% 2 ML in 0.9 % Sodium Chloride 500 ML IVPB ONE (21:25)
[2020-05-28] MEDS: *HR* HYDROmorphone (PF) 1 MG/ML SYRINGE IVP PRN (22:55)
[2020-05-29] MEDS: Piperacillin/Tazobactam 3.375 GM in D5% in Water (Mini-Bag+) 100 ML IVPB SCH ×3 (00:19→17:17)
[2020-05-29] MEDS: *HR* Metoprolol 5 MG/5 ML VIAL IVP SCH ×4 (00:19→17:19)
[2020-05-29 02:53] LABS: BUN/Creatinine Ratio 42 (6-26); Blood Urea Nitrogen 22 mg/dL (8-23); Calcium 7.9 mg/dL (8.6-10.3); Carbon Dioxide 27 mEq/L (23-29); Chloride 117 mEq/L (98-107); Glucose 290 mg/dL (70-105); Magnesium 1.9 mg/dL (1.6-2.6); Osmolality,Calculated 324 (280-300); Potassium 3.9 mEq/L (3.5-5.1); Sodium 150 mEq/L (136-145); eGFR For African Americans > 60 (> 60); eGFR For Non-African Americans > 60 (> 60)
[2020-05-29] MEDS ORDERED: *HR* Labetalol 20 MG/4 ML SYRINGE IVP ONE (04:11)
[2020-05-29 05:15] LABS: Mean Platelet Volume 11.4 fL (9.4-12.4); Nucleated Red Blood Cells 0.2 /100 WBC (0); Red Cell Distribution Width 13.4 % (11.5-14.5)
[2020-05-29 05:17] LABS: Basophils # 0.1 K/mcL (0.0-0.2); Basophils % 1.4 %; Eosinophils # 0.3 K/mcL (0.0-0.6); Eosinophils % 3.4 %; Hematocrit 45.1 % (37.5-50.1); Hemoglobin 13.8 g/dL (12.9-16.9); Immature Granulocytes % 4.3 % (0-4); Immature Platelets 1.6 % (1.1-6.1); Lymphocytes # 1.6 K/mcL (0.6-4.6); Lymphocytes % 17.7 %; Mean Corpuscular HGB Conc 30.6 g/dL (31.6-35.5); Mean Corpuscular Hemoglobin 30.7 pg (28.0-33.3); Mean Corpuscular Volume 100.4 fL (83.0-100.0); Monocytes # 0.8 K/mcL (0.0-1.3); Monocytes % 8.5 %; Neutrophils # 5.7 K/mcL (1.6-8.9); Platelet Count 166 K/mcL (140-400); Red Blood Count 4.49 M/mcL (4.19-5.50); Segmented Neutrophils % 64.7 %; White Blood Count 8.8 K/mcL (4.3-11.1)
[2020-05-29 05:36] LABS: BUN/Creatinine Ratio 38 (6-26); Blood Urea Nitrogen 21 mg/dL (8-23); Calcium 8.3 mg/dL (8.6-10.3); Carbon Dioxide 29 mEq/L (23-29); Chloride 116 mEq/L (98-107); Glucose 279 mg/dL (70-105); Osmolality,Calculated 325 (280-300); Potassium 3.9 mEq/L (3.5-5.1); Sodium 151 mEq/L (136-145); eGFR For African Americans > 60 (> 60); eGFR For Non-African Americans > 60 (> 60)
[2020-05-29 05:44] LABS: Platelet Estimate Normal (Normal)
[2020-05-29 06:06] LABS: Estimated Average Glucose 186 mg/dl
[2020-05-29] MEDS: Vancomycin 1,000 MG in D5% in Water 250 ML IVPB SCH ×2 (06:10→17:18)
[2020-05-29] MEDS: *HR* Heparin 5,000 UNIT/ML VIAL SQ SCH ×2 (06:13→17:18)
[2020-05-29] MEDS: Insulin LISPRO 300 UNITS/3 ML VIAL SQ SCH ×3 (09:09→17:17)
[2020-05-29] MEDS: Insulin DETEMIR 100 UNIT/ML X5UNITS SQ SCH (09:11)
[2020-05-29] MEDS: Cyanocobalamin (B-12) 1,000 MCG TABLET PO SCH (09:12)
[2020-05-29 10:44] LABS: BUN/Creatinine Ratio 40 (6-26); Blood Urea Nitrogen 22 mg/dL (8-23); Calcium 8.6 mg/dL (8.6-10.3); Carbon Dioxide 30 mEq/L (23-29); Chloride 114 mEq/L (98-107); Glucose 353 mg/dL (70-105); Osmolality,Calculated 327 (280-300); Potassium 3.6 mEq/L (3.5-5.1); Sodium 150 mEq/L (136-145); eGFR For African Americans > 60 (> 60); eGFR For Non-African Americans > 60 (> 60)
[2020-05-29] MEDS ORDERED: D5% in Water 1,000 ML IVC SCH (12:30)
[2020-05-29] MEDS: Divalproex Sodium 125 MG CAPSULE PO SCH ×2 (14:08→20:23)
[2020-05-29 14:44] LABS: BUN/Creatinine Ratio 40 (6-26); Blood Urea Nitrogen 20 mg/dL (8-23); Calcium 8.3 mg/dL (8.6-10.3); Carbon Dioxide 27 mEq/L (23-29); Chloride 117 mEq/L (98-107); Glucose 189 mg/dL (70-105); Osmolality,Calculated 318 (280-300); Potassium 3.7 mEq/L (3.5-5.1); Sodium 150 mEq/L (136-145); eGFR For African Americans > 60 (> 60); eGFR For Non-African Americans > 60 (> 60)
[2020-05-29 18:23] LABS: BUN/Creatinine Ratio 43 (6-26); Blood Urea Nitrogen 20 mg/dL (8-23); Calcium 8.2 mg/dL (8.6-10.3); Carbon Dioxide 30 mEq/L (23-29); Chloride 113 mEq/L (98-107); Glucose 188 mg/dL (70-105); Osmolality,Calculated 314 (280-300); Potassium 3.4 mEq/L (3.5-5.1); Sodium 148 mEq/L (136-145); eGFR For African Americans > 60 (> 60); eGFR For Non-African Americans > 60 (> 60)
[2020-05-29] MEDS: Latanoprost 2.5 ML BOTTLE LEFT EYE SCH (20:23)
[2020-05-29] MEDS: Sennosides 8.6 MG TABLET PO SCH (20:23)
[2020-05-29] MEDS: traZODone 50 MG TABLET PO SCH (20:23)
[2020-05-29] MEDS: Mirtazapine 15 MG TABLET PO SCH (20:23)
[2020-05-29] MEDS: QUEtiapine Fumarate 25 MG TABLET PO SCH (20:23)
[2020-05-29] MEDS ORDERED: Potassium Chloride 20 MEQ, Lidocaine 1% 2 ML in 0.9 % Sodium Chloride 250 ML IVPB ONE (21:29)
[2020-05-30 00:17] LABS: BUN/Creatinine Ratio 44 (6-26); Blood Urea Nitrogen 23 mg/dL (8-23); Calcium 7.9 mg/dL (8.6-10.3); Carbon Dioxide 27 mEq/L (23-29); Chloride 115 mEq/L (98-107); Glucose 155 mg/dL (70-105); Osmolality,Calculated 309 (280-300); Potassium 5.3 mEq/L (3.5-5.1); Sodium 146 mEq/L (136-145); eGFR For African Americans > 60 (> 60); eGFR For Non-African Americans > 60 (> 60)
[2020-05-30] MEDS: Piperacillin/Tazobactam 3.375 GM in D5% in Water (Mini-Bag+) 100 ML IVPB SCH ×3 (00:30→16:12)
[2020-05-30] MEDS: *HR* Metoprolol 5 MG/5 ML VIAL IVP SCH ×4 (00:31→18:07)
[2020-05-30 00:59] LABS: BUN/Creatinine Ratio 42 (6-26); Blood Urea Nitrogen 22 mg/dL (8-23); Calcium 7.8 mg/dL (8.6-10.3); Carbon Dioxide 27 mEq/L (23-29); Chloride 115 mEq/L (98-107); Glucose 147 mg/dL (70-105); Osmolality,Calculated 308 (280-300); Potassium 4.4 mEq/L (3.5-5.1); Sodium 146 mEq/L (136-145); eGFR For African Americans > 60 (> 60); eGFR For Non-African Americans > 60 (> 60)
[2020-05-30] MEDS: *HR* Heparin 5,000 UNIT/ML VIAL SQ SCH ×2 (05:56→18:08)
[2020-05-30] MEDS: Vancomycin 1,000 MG in D5% in Water 250 ML IVPB SCH (05:56)
[2020-05-30 06:13] LABS: BUN/Creatinine Ratio 44 (6-26); Blood Urea Nitrogen 24 mg/dL (8-23); Calcium 8.2 mg/dL (8.6-10.3); Carbon Dioxide 26 mEq/L (23-29); Chloride 114 mEq/L (98-107); Glucose 96 mg/dL (70-105); Osmolality,Calculated 304 (280-300); Sodium 145 mEq/L (136-145); eGFR For African Americans > 60 (> 60); eGFR For Non-African Americans > 60 (> 60)
[2020-05-30 06:45] LABS: Nucleated Red Blood Cells 0.2 /100 WBC (0)
[2020-05-30 06:46] LABS: Hematocrit 38.1 % (37.5-50.1); Hemoglobin 12.1 g/dL (12.9-16.9); Immature Platelets 3.2 % (1.1-6.1); Lymphocytes # 1.8 K/mcL (0.6-4.6); Mean Corpuscular HGB Conc 31.8 g/dL (31.6-35.5); Mean Corpuscular Hemoglobin 31.4 pg (28.0-33.3); Red Blood Count 3.85 M/mcL (4.19-5.50); Red Cell Distribution Width 13.5 % (11.5-14.5); White Blood Count 8.1 K/mcL (4.3-11.1)
[2020-05-30 06:48] LABS: Platelet Count 78 K/mcL (140-400)
[2020-05-30 07:22] LABS: Eosinophils # 0.2 K/mcL (0.0-0.6); Monocytes # 0.3 K/mcL (0.0-1.3); Neutrophils # 5.4 K/mcL (1.6-8.9); Platelet Estimate Normal (Normal)
[2020-05-30] MEDS: Divalproex Sodium 125 MG CAPSULE PO SCH ×3 (08:49→18:08)
[2020-05-30] MEDS: Cyanocobalamin (B-12) 1,000 MCG TABLET PO SCH (08:49)
[2020-05-30] MEDS: QUEtiapine Fumarate 25 MG TABLET PO SCH ×2 (08:49→18:09)
[2020-05-30] MEDS: Sennosides 8.6 MG TABLET PO SCH ×2 (08:49→18:09)
[2020-05-30] MEDS: amLODIPine 5 MG TABLET PO SCH (08:50)
[2020-05-30] MEDS: Aspirin Enteric Coated 81 MG Tablet PO SCH (08:50)
[2020-05-30] MEDS: Insulin DETEMIR 100 UNIT/ML X5UNITS SQ SCH (08:50)
[2020-05-30] MEDS: Insulin LISPRO 300 UNITS/3 ML VIAL SQ SCH ×3 (08:51→18:00)
[2020-05-30 09:22] LABS: BUN/Creatinine Ratio 41 (6-26); Blood Urea Nitrogen 22 mg/dL (8-23); Calcium 7.9 mg/dL (8.6-10.3); Carbon Dioxide 23 mEq/L (23-29); Chloride 113 mEq/L (98-107); Glucose 126 mg/dL (70-105); Osmolality,Calculated 303 (280-300); Potassium 3.8 mEq/L (3.5-5.1); Sodium 144 mEq/L (136-145); eGFR For African Americans > 60 (> 60); eGFR For Non-African Americans > 60 (> 60)
[2020-05-30 12:23] LABS: BUN/Creatinine Ratio 37 (6-26); Blood Urea Nitrogen 24 mg/dL (8-23); Calcium 8.1 mg/dL (8.6-10.3); Carbon Dioxide 28 mEq/L (23-29); Chloride 114 mEq/L (98-107); Glucose 121 mg/dL (70-105); Osmolality,Calculated 309 (280-300); Potassium 3.7 mEq/L (3.5-5.1); Sodium 147 mEq/L (136-145); eGFR For African Americans > 60 (> 60); eGFR For Non-African Americans > 60 (> 60)
[2020-05-30] MEDS ORDERED: D5% in Water 1,000 ML IVC SCH (15:15)
[2020-05-30 17:30] LABS: BUN/Creatinine Ratio 36 (6-26); Blood Urea Nitrogen 26 mg/dL (8-23); Calcium 8.5 mg/dL (8.6-10.3); Carbon Dioxide 29 mEq/L (23-29); Chloride 114 mEq/L (98-107); Glucose 114 mg/dL (70-105); Osmolality,Calculated 312 (280-300); Potassium 3.6 mEq/L (3.5-5.1); Sodium 148 mEq/L (136-145); eGFR For African Americans > 60 (> 60); eGFR For Non-African Americans > 60 (> 60)
[2020-05-30] MEDS: Latanoprost 2.5 ML BOTTLE LEFT EYE SCH (18:09)
[2020-05-30] MEDS: Mirtazapine 15 MG TABLET PO SCH (18:09)
[2020-05-30] MEDS: traZODone 50 MG TABLET PO SCH (19:35)
[2020-05-30 22:02] LABS: BUN/Creatinine Ratio 36 (6-26); Blood Urea Nitrogen 24 mg/dL (8-23); Calcium 7.4 mg/dL (8.6-10.3); Carbon Dioxide 24 mEq/L (23-29); Chloride 115 mEq/L (98-107); Glucose 206 mg/dL (70-105); Osmolality,Calculated 310 (280-300); Potassium 3.3 mEq/L (3.5-5.1); Sodium 145 mEq/L (136-145); eGFR For African Americans > 60 (> 60); eGFR For Non-African Americans > 60 (> 60)
[2020-05-31] MEDS: *HR* Metoprolol 5 MG/5 ML VIAL IVP SCH ×4 (00:27→18:47)
[2020-05-31] MEDS: Piperacillin/Tazobactam 3.375 GM in D5% in Water (Mini-Bag+) 100 ML IVPB SCH ×3 (00:27→18:44)
[2020-05-31 01:58] LABS: Eosinophils % 3.4 %; Red Cell Distribution Width 13.4 % (11.5-14.5)
[2020-05-31 02:00] LABS: Basophils # 0.1 K/mcL (0.0-0.2); Basophils % 0.7 %; Eosinophils # 0.3 K/mcL (0.0-0.6); Hematocrit 39.3 % (37.5-50.1); Hemoglobin 12.8 g/dL (12.9-16.9); Immature Granulocytes % 2.9 % (0-4); Immature Platelets 4.2 % (1.1-6.1); Lymphocytes # 1.4 K/mcL (0.6-4.6); Lymphocytes % 17.2 %; Mean Corpuscular HGB Conc 32.6 g/dL (31.6-35.5); Mean Corpuscular Hemoglobin 31.8 pg (28.0-33.3); Mean Corpuscular Volume 97.5 fL (83.0-100.0); Monocytes # 0.7 K/mcL (0.0-1.3); Monocytes % 9.2 %; Neutrophils # 5.3 K/mcL (1.6-8.9); Red Blood Count 4.03 M/mcL (4.19-5.50); Segmented Neutrophils % 66.6 %
[2020-05-31 02:06] LABS: Platelet Count 81 K/mcL (140-400)
[2020-05-31 02:17] LABS: BUN/Creatinine Ratio 29 (6-26); Blood Urea Nitrogen 23 mg/dL (8-23); Calcium 8.3 mg/dL (8.6-10.3); Carbon Dioxide 27 mEq/L (23-29); Chloride 113 mEq/L (98-107); Glucose 99 mg/dL (70-105); Osmolality,Calculated 306 (280-300); Potassium 3.4 mEq/L (3.5-5.1); Sodium 146 mEq/L (136-145); eGFR For African Americans > 60 (> 60); eGFR For Non-African Americans > 60 (> 60)
[2020-05-31] MEDS: *HR* Heparin 5,000 UNIT/ML VIAL SQ SCH ×2 (05:10→18:47)
[2020-05-31 08:45] LABS: BUN/Creatinine Ratio 30 (6-26); Blood Urea Nitrogen 24 mg/dL (8-23); Calcium 8.3 mg/dL (8.6-10.3); Carbon Dioxide 27 mEq/L (23-29); Chloride 113 mEq/L (98-107); Glucose 118 mg/dL (70-105); Osmolality,Calculated 307 (280-300); Sodium 146 mEq/L (136-145); eGFR For African Americans > 60 (> 60); eGFR For Non-African Americans > 60 (> 60)
[2020-05-31] MEDS: Sennosides 8.6 MG TABLET PO SCH ×2 (09:00→18:47)
[2020-05-31] MEDS: Divalproex Sodium 125 MG CAPSULE PO SCH ×4 (09:00→22:38)
[2020-05-31] MEDS: Cyanocobalamin (B-12) 1,000 MCG TABLET PO SCH (09:00)
[2020-05-31] MEDS: Aspirin Enteric Coated 81 MG Tablet PO SCH (09:00)
[2020-05-31] MEDS: QUEtiapine Fumarate 25 MG TABLET PO SCH ×2 (09:00→18:47)
[2020-05-31] MEDS: amLODIPine 5 MG TABLET PO SCH (09:01)
[2020-05-31] MEDS: *HR* HYDROmorphone (PF) 1 MG/ML SYRINGE IVP PRN (09:47)
[2020-05-31] MEDS: Insulin DETEMIR 100 UNIT/ML X5UNITS SQ SCH (09:50)
[2020-05-31] MEDS: Insulin LISPRO 300 UNITS/3 ML VIAL SQ SCH ×2 (12:37→18:10)
[2020-05-31 12:39] LABS: BUN/Creatinine Ratio 31 (6-26); Blood Urea Nitrogen 24 mg/dL (8-23); Carbon Dioxide 27 mEq/L (23-29); Chloride 114 mEq/L (98-107); Glucose 140 mg/dL (70-105); Osmolality,Calculated 308 (280-300); Sodium 146 mEq/L (136-145); eGFR For African Americans > 60 (> 60); eGFR For Non-African Americans > 60 (> 60)
[2020-05-31] MEDS ORDERED: Potassium Chloride 10 MEQ in D5% in 0.9% NACL 1,000 ML IVC SCH (17:30)
[2020-05-31 19:59] LABS: BUN/Creatinine Ratio 33 (6-26); Blood Urea Nitrogen 25 mg/dL (8-23); Calcium 8.2 mg/dL (8.6-10.3); Carbon Dioxide 25 mEq/L (23-29); Chloride 113 mEq/L (98-107); Glucose 143 mg/dL (70-105); Osmolality,Calculated 309 (280-300); Potassium 3.3 mEq/L (3.5-5.1); Sodium 146 mEq/L (136-145); eGFR For African Americans > 60 (> 60); eGFR For Non-African Americans > 60 (> 60)
[2020-05-31] MEDS: Mirtazapine 15 MG TABLET PO SCH (20:31)
[2020-05-31] MEDS: Latanoprost 2.5 ML BOTTLE LEFT EYE SCH (20:31)
[2020-05-31] MEDS ORDERED: Divalproex Sodium 125 MG CAPSULE PO SCH (22:16)
[2020-05-31] MEDS: traZODone 50 MG TABLET PO SCH (22:25)
[2020-06-01] MEDS: *HR* Metoprolol 5 MG/5 ML VIAL IVP SCH ×5 (00:01→23:08)
[2020-06-01 06:01] LABS: Mean Corpuscular Volume 97.9 fL (83.0-100.0); Red Cell Distribution Width 13.2 % (11.5-14.5)
[2020-06-01] MEDS: *HR* Heparin 5,000 UNIT/ML VIAL SQ SCH ×2 (06:02→17:29)
[2020-06-01 06:03] LABS: Basophils % 0.4 %; Eosinophils # 0.1 K/mcL (0.0-0.6); Eosinophils % 1.9 %; Hematocrit 36.6 % (37.5-50.1); Immature Granulocytes % 1.9 % (0-4); Immature Platelets 5.2 % (1.1-6.1); Lymphocytes # 1.3 K/mcL (0.6-4.6); Lymphocytes % 18.4 %; Mean Corpuscular HGB Conc 32.8 g/dL (31.6-35.5); Mean Corpuscular Hemoglobin 32.1 pg (28.0-33.3); Mean Platelet Volume 12.4 fL (9.4-12.4); Monocytes # 0.7 K/mcL (0.0-1.3); Monocytes % 9.1 %; Platelet Count 93 K/mcL (140-400); Red Blood Count 3.74 M/mcL (4.19-5.50); Segmented Neutrophils % 68.3 %; White Blood Count 7.3 K/mcL (4.3-11.1)
[2020-06-01 06:20] LABS: BUN/Creatinine Ratio 32 (6-26); Blood Urea Nitrogen 23 mg/dL (8-23); Calcium 8.4 mg/dL (8.6-10.3); Carbon Dioxide 27 mEq/L (23-29); Chloride 112 mEq/L (98-107); Glucose 113 mg/dL (70-105); Magnesium 2.1 mg/dL (1.6-2.6); Osmolality,Calculated 302 (280-300); Potassium 3.4 mEq/L (3.5-5.1); Sodium 144 mEq/L (136-145); eGFR For African Americans > 60 (> 60); eGFR For Non-African Americans > 60 (> 60)
[2020-06-01 10:09] LABS: BUN/Creatinine Ratio 33 (6-26); Blood Urea Nitrogen 23 mg/dL (8-23); Calcium 8.5 mg/dL (8.6-10.3); Carbon Dioxide 26 mEq/L (23-29); Chloride 113 mEq/L (98-107); Glucose 143 mg/dL (70-105); Osmolality,Calculated 304 (280-300); Potassium 3.6 mEq/L (3.5-5.1); Sodium 144 mEq/L (136-145); eGFR For African Americans > 60 (> 60); eGFR For Non-African Americans > 60 (> 60)
[2020-06-01] MEDS: Cyanocobalamin (B-12) 1,000 MCG TABLET PO SCH (10:48)
[2020-06-01] MEDS: *HR* HYDROmorphone (PF) 1 MG/ML SYRINGE IVP PRN ×2 (10:48→18:37)
[2020-06-01] MEDS: Sennosides 8.6 MG TABLET PO SCH ×2 (10:48→20:19)
[2020-06-01] MEDS: QUEtiapine Fumarate 25 MG TABLET PO SCH ×2 (10:48→20:19)
[2020-06-01] MEDS ORDERED: Vancomycin 1,000 MG in D5% in Water 250 ML IVPB SCH (11:00)
[2020-06-01] MEDS: Piperacillin/Tazobactam 3.375 GM in D5% in Water (Mini-Bag+) 100 ML IVPB SCH ×4 (11:16→23:08)
[2020-06-01] MEDS: Aspirin Enteric Coated 81 MG Tablet PO SCH (11:16)
[2020-06-01] MEDS: amLODIPine 5 MG TABLET PO SCH (11:22)
[2020-06-01] MEDS: Insulin DETEMIR 100 UNIT/ML X5UNITS SQ SCH (11:32)
[2020-06-01] MEDS: Insulin LISPRO 300 UNITS/3 ML VIAL SQ SCH ×3 (11:46→17:32)
[2020-06-01] MEDS: Divalproex Sodium 125 MG CAPSULE PO SCH ×2 (13:58→20:19)
[2020-06-01] MEDS ORDERED: Morphine Sulfate Oral CONC 10 MG/0.5 ML ORAL.SYG SL PRN (16:08)
[2020-06-01] MEDS: Potassium Chloride 20 MEQ in D5% in Water 1,000 ML IVC SCH (17:41)
[2020-06-01] MEDS: Mirtazapine 15 MG TABLET PO SCH (20:19)
[2020-06-01] MEDS: Latanoprost 2.5 ML BOTTLE LEFT EYE SCH (20:26)
[2020-06-01] MEDS: traZODone 50 MG TABLET PO SCH (23:09)
[2020-06-02 04:23] LABS: Hematocrit 35.1 % (37.5-50.1); Hemoglobin 11.4 g/dL (12.9-16.9); Red Blood Count 3.57 M/mcL (4.19-5.50); White Blood Count 7.1 K/mcL (4.3-11.1)
[2020-06-02 04:24] LABS: Basophils % 0.4 %; Eosinophils # 0.2 K/mcL (0.0-0.6); Eosinophils % 2.8 %; Immature Granulocytes % 1.8 % (0-4); Immature Platelets 3.4 % (1.1-6.1); Lymphocytes # 1.4 K/mcL (0.6-4.6); Lymphocytes % 19.6 %; Mean Corpuscular HGB Conc 32.5 g/dL (31.6-35.5); Mean Corpuscular Hemoglobin 31.9 pg (28.0-33.3); Mean Corpuscular Volume 98.3 fL (83.0-100.0); Mean Platelet Volume 13.7 fL (9.4-12.4); Monocytes # 0.6 K/mcL (0.0-1.3); Monocytes % 8.9 %; Neutrophils # 4.7 K/mcL (1.6-8.9); Platelet Count 113 K/mcL (140-400); Red Cell Distribution Width 13.1 % (11.5-14.5); Segmented Neutrophils % 66.5 %
[2020-06-02 04:40] LABS: BUN/Creatinine Ratio 29 (6-26); Blood Urea Nitrogen 20 mg/dL (8-23); Calcium 8.2 mg/dL (8.6-10.3); Carbon Dioxide 28 mEq/L (23-29); Chloride 114 mEq/L (98-107); Glucose 58 mg/dL (70-105); Osmolality,Calculated 304 (280-300); Potassium 3.8 mEq/L (3.5-5.1); Sodium 147 mEq/L (136-145); eGFR For African Americans > 60 (> 60); eGFR For Non-African Americans > 60 (> 60)
[2020-06-02] MEDS: *HR* Metoprolol 5 MG/5 ML VIAL IVP SCH ×3 (06:11→17:26)
[2020-06-02] MEDS: *HR* Heparin 5,000 UNIT/ML VIAL SQ SCH ×2 (06:11→17:27)
[2020-06-02] MEDS: Piperacillin/Tazobactam 3.375 GM in D5% in Water (Mini-Bag+) 100 ML IVPB SCH (08:46)
[2020-06-02] MEDS: Insulin LISPRO 300 UNITS/3 ML VIAL SQ SCH ×2 (08:48→12:42)
[2020-06-02] MEDS: QUEtiapine Fumarate 25 MG TABLET PO SCH (08:50)
[2020-06-02] MEDS: amLODIPine 5 MG TABLET PO SCH (08:50)
[2020-06-02] MEDS: Cyanocobalamin (B-12) 1,000 MCG TABLET PO SCH (08:51)
[2020-06-02] MEDS: Divalproex Sodium 125 MG CAPSULE PO SCH ×2 (08:51→14:45)
[2020-06-02] MEDS: Sennosides 8.6 MG TABLET PO SCH (08:51)
[2020-06-02] MEDS ORDERED: Haloperidol Oral Conc 10 MG/5 ML UDC PO PRN (09:49)
[2020-06-02] MEDS ORDERED: Morphine Sulfate Oral CONC 10 MG/0.5 ML ORAL.SYG SL PRN (10:21)
[2020-06-02] MEDS: Aspirin Enteric Coated 81 MG Tablet PO SCH (10:26)
[2020-06-02] MEDS: Insulin DETEMIR 100 UNIT/ML X5UNITS SQ SCH (10:27)
[2020-06-02] MEDS: Potassium Chloride 20 MEQ in D5% in Water 1,000 ML IVC SCH (10:27)
[2020-06-02] MEDS ORDERED: Aspirin 81 MG TAB.CHEW PO SCH (10:30)
[2020-06-02 11:22] VITALS: BP 150/69
[2020-06-02] MEDS: Morphine Sulfate Oral CONC 10 MG/0.5 ML ORAL.SYG SL SCH ×2 (11:42→17:06)
[2020-06-02] MEDS ORDERED: D5% in Water 1,000 ML IVC PRN (12:54)
[2020-06-02] MEDS ORDERED: *HR* Dextrose 50 % in Water (Vial) 50 ML VIAL IVP PRN (12:54)
[2020-06-02] MEDS ORDERED: Dextrose Gel 15 GM/37.5 ML TUBE PO PRN ×2 (12:54)
[2020-06-02] MEDS ORDERED: Insulin LISPRO 300 UNITS/3 ML VIAL SQ SCH ×2 (16:30→21:00)
[2020-06-02] MEDS ORDERED: Lactobacillus 1 EACH CAP.SPRINK PO SCH (21:00)
== END 2020-06-02 18:02 | disposition hospice, inpatient (51) | DRG 872 ==
LOC: EMEROOARM 06:03 → 2ANU 06:03 → SUATTDRO 11:23 → 2ANU 12:12
PROVIDERS: ADMIT Internal Medicine; ATTEND Pharmacist